=== PATIENT | female | born 1955 | race Caucasian/White ===

== ENCOUNTER 2018-12-07 09:49 | Outpatient (CLI) | payer BC ==
--- NOTE | 2018-12-07 10:10 | RAD ---
XR Chest Pa Lat STANDARD HISTORY: Bronchitis COMPARISON: None FINDINGS: The heart size is normal. The lungs are well expanded without focal areas of consolidation, pneumothorax or pleural effusions. IMPRESSION: No radiographic evidence of acute cardiopulmonary process.
== END 2018-12-07 09:50 | disposition home or self-care (01) ==
LOC: SCSRAD 09:49
PROVIDERS: ATTEND Nurse Practitioner Family
DX: J40 Bronchitis, not specified as acute or chronic (principal)
CPT/HCPCS: 71046

== ENCOUNTER 2019-08-09 10:45 | Outpatient (CLI) | payer BC ==
--- NOTE | 2019-08-09 11:51 | MRI ---
MR the lumbar spine without contrast: 08/09/2019 History: Multiple falls, difficulty walking, low back pain COMPARISON: None. TECHNIQUE: Multiplanar multisequence MR images were obtained of lumbar spine without IV contrast FINDINGS: On the basis of 5 lumbar type vertebral bodies, conus medullaris terminates at theL1-2 level. Sagittal STIR imaging demonstrates no focal area of osseous marrow edema. T12-L1:Mild disc space narrowing and mild bilateral facet hypertrophy with no significant central can al or neural foraminal stenosis. L1-2:Mild disc space narrowing and bilateral facet hypertrophy. No significant central canal or neura l foraminal stenosis. L2-3:Minimal disc bulge. Bilateral facet hypertrophy, right greater than left. Mild central canal terri nosis. No significant neural foraminal stenosis. L3-4:Moderate bilateral facet hypertrophy. Minimal disc bulge. No central canal stenosis. Mild left n eural foraminal stenosis. L4-5:Mild anterolisthesis measuring 5-6 mm. Disc space narrowing and disc desiccation with mild disc bulge. Mild central canal stenosis. Moderate bilateral neural foraminal stenosis. L5-S1:Mild bilateral facet hypertrophy. No significant central canal or neural foraminal stenosis. Image retroperitoneal structures demonstrateno acute findings. Heterogeneous posterior T1 and T2 hypo intense mass is noted within the uterus measuring 4.5 x 4.7 cm suggesting a large uterine fibroid. The rectum lies within 1.2 cm of the ventral cortex of the lower sacrum. IMPRESSION: Multilevel degenerative change within the lumbar spine, most prominent at L4-5. Findings suggesting a prominent uterine fibroid.
== END 2019-08-09 10:46 | disposition home or self-care (01) ==
LOC: TBSIIMAG 10:45
PROVIDERS: ATTEND Orthopaedic Surgery
DX: M54.5 Low back pain (principal); M47.816 Spondylosis without myelopathy or radiculopathy, lumbar region
CPT/HCPCS: 72148

== ENCOUNTER 2020-01-10 14:15 | Outpatient (CLI) | payer BC, OTHER ==
[2020-01-10 18:05] LABS: #Basophils 0.1 thou/uL (0.0-0.2); #Eosinphils 0.3 thou/uL (0.0-0.7); #Lymphocytes 2.8 thou/uL (1.20-3.40); #Monocytes 0.6 thou/uL (0.11-0.59); #Neutrophils 7.4 thou/uL (1.40-6.50); %Basophils 0.6 % (0.0-1.0); %Eosinophils 2.7 % (0.0-10.0); %Lymphocytes 25.5 % (21.0-51.0); %Monocytes 5.2 % (0.0-10.0); Hemoglobin 14.7 g/dL (12.0-16.0); Mean Corpuscular HGB CONC 33.8 g/dL (32.0-36.0); Mean Corpuscular Hemoglobin 32.3 pg (27.0-31.0); Mean Corpuscular Volume 95.5 fL (78.0-98.0); Mean Platelet Volume 8.3 fL (7.4-10.4); Platelet Count 323 thou/uL (130-400); RBC Distribution Width 12.2 % (11.5-14.5); Red Blood Cell (RBC) Count 4.55 mill/uL (4.20-5.40); White Blood Cell (WBC) Count 11.1 thou/uL (4.8-10.8)
[2020-01-10 18:13] LABS: PTT 33.8 sec (22.9-36.1)
[2020-01-10 18:31] LABS: Anion Gap 13 mmol/L (10-20); BUN (Urea Nitrogen) 13 mg/dL (9.8-20.1); Calc. Creatinine Clearance 0 mL/min (70-130); Calcium 8.9 mg/dL (7.8-10.44); Carbon Dioxide 27 mmol/L (23-31); Chloride 98 mmol/L (98-107); Estimated GFR-MDRD 61; Glucose 388 mg/dL (80-115); Potassium 4.2 mmol/L (3.5-5.1); Sodium 134 mmol/L (136-145)
[2020-01-11 12:18] LABS: SARS-CoV-2 MS2 Positive; SARS-CoV-2 N Gene Negative; SARS-CoV-2 S Gene Negative; SARS-CoV-2 orf1ab Negative
== END 2020-01-10 14:16 | disposition home or self-care (01) ==
LOC: SCSLAB 14:15
PROVIDERS: ATTEND Orthopaedic Surgery
DX: Z01.812 Encounter for preprocedural laboratory examination (principal); Z11.59 Encounter for screening for other viral diseases; M54.16 Radiculopathy, lumbar region; M54.5 Low back pain
CPT/HCPCS: 80048; 85025; 85610; 85730; 86850; 86900; 86901; 87635; U0003